=== PATIENT | female | born 1980 | race Caucasian/White ===

== ENCOUNTER → 2017-05-29 16:47 | Outpatient (CLI) | payer OTHER | END | disposition home or self-care (01) | LOC: D.MAMMO 15:45 | DX: Z12.31 Encounter for screening mammogram for malignant neoplasm of breast (principal) ==

== ENCOUNTER → 2017-06-12 16:51 | Outpatient (CLI) | payer OTHER | END | disposition home or self-care (01) | LOC: D.MAMMO 11:00 | DX: R92.8 Other abnormal and inconclusive findings on diagnostic imaging of breast (principal) ==

== ENCOUNTER 2018-11-29 08:00 | Outpatient (CLI) | payer OTHER ==
[~2018-11-29] VITALS: Ht 167.6 cm; Wt 68.6 kg
[2018-11-29] MEDS ORDERED: SYNTHROID88 MCG PO (16:58)
[2018-11-29 16:59] VITALS: BMI 24.4
[2018-11-29 17:31] LABS: BASOPHILS 0.5 % (0-2); EOSINOPHILS 1.7 % (0-7); HEMATOCRIT 40.9 % (36.0-48.0); HEMOGLOBIN 13.6 g/dL (12-16); IMMATURE GRANULOCYTES 0.2 % (0-5); LYMPHOCYTES 32.2 % (15-50); MCH 31.5 pg (26.0-34.0); MCHC 33.3 g/dL (31.0-37.0); MCV 94.7 fL (80.0-100.0); MEAN PLATELET VOLUME 9.4 fL (7.4-10.4); MONOCYTES 6.9 % (2-11); NEUTROPHILS 58.5 % (40-80); PLATELET COUNT 222 10x3/uL (130-400); RBC 4.32 10x6/uL (4.00-5.40); RDW 13.2 % (11.5-14.5); WBC 6.3 10x3/uL (4.8-10.8)
[2018-12-03 07:26] VITALS: Ht 167.6 cm; Wt 68.6 kg
== END 2018-11-29 08:01 | disposition home or self-care (01) ==
LOC: D.OPS 08:00 → EDSTATUS 12-03 09:00 → D.PAN 12-03 09:00 → D.OPS 12-03 09:00
PROVIDERS: Obstetrics & Gynecology
DX: N91.2 Amenorrhea, unspecified (principal); Z01.810 Encounter for preprocedural cardiovascular examination; Z01.811 Encounter for preprocedural respiratory examination; Z01.812 Encounter for preprocedural laboratory examination; Z53.9 Procedure and treatment not carried out, unspecified reason